=== PATIENT | male | born 1970 | race Caucasian/White ===

== ENCOUNTER 2021-11-06 12:05 | Emergency (ER) | payer BC ==
[~2021-11-06] VITALS: Ht 170.2 cm; Wt 93.2 kg
[~2021-11-06 12:05] MED LIST: ATOXIMETIN-B1 CAP PO; HCTZ; HYDROCHLOROTHIA25 MG PO; LORTAB 5/500 501 TAB; LORTAB 5/500 501 TAB PO; METOPROLOL25 MG PO; PHENERGAN 25 TA25 MG PO; POTASSIUM20 MEQ PO; ULTRAM50 MG PO; ZYRTEC10 M1 PO; [UNRECOGNIZED DRUG - OTHER]
[2021-11-06 12:13] VITALS: BP 143/92; TEMP 98.1
[2021-11-06] MEDS ORDERED: CEPHALEXIN500 M1 PO (13:26)
[2021-11-06 13:35] VITALS: PULSE 90
== END 2021-11-06 13:35 | disposition home or self-care (01) ==
LOC: COL.ER 12:05
DX: S62.635A Displaced fracture of distal phalanx of left ring finger, initial encounter for closed fracture (principal); W31.2XXA Contact with powered woodworking and forming machines, initial encounter

== ENCOUNTER → 2021-12-31 | Outpatient (CLI) | payer BC ==
[~2021-12-31] MED LIST changes: +CEPHALEXIN500 M1 PO
== END ==
LOC: COL.RAD 11:18
DX: N43.3 Hydrocele, unspecified (principal)